=== PATIENT | male | born 1990 | race Two or more races ===

== ENCOUNTER 2018-01-24 08:27 | Emergency (ER) | payer MEDICAID ==
[~2018-01-24] VITALS: Ht 167.6 cm; Wt 66.0 kg
[2018-01-24] MEDS ORDERED: KETOROLAC 60MG/2ML VIAL IM ONE (10:00)
[2018-01-24] MEDS ORDERED: HYDROCODONE/ACETAMINOPHEN 5/325MG TABLET PO ONE (10:00)
[2018-01-24] MEDS ORDERED: BACITRACIN ZINC OINT UDPKT TOP ONE (10:00)
[2018-01-24] MEDS ORDERED: LIDOCAINE HCL/PF 1% 10 MG/ML 5ML VIAL IJ ONE (10:00)
[2018-01-24 10:08] VITALS: BP 145/95
== END 2018-01-24 11:21 | disposition home or self-care (01) ==
LOC: ER 08:27
DX: L02.31 Cutaneous abscess of buttock (principal); F17.200 Nicotine dependence, unspecified, uncomplicated; F12.10 Cannabis abuse, uncomplicated
CPT/HCPCS: 10060; 96372; 99283; J1885; J3490

== ENCOUNTER 2018-07-02 19:42 | Emergency (ER) | payer MEDICAID ==
[~2018-07-02] VITALS: Ht 167.6 cm; Wt 65.9 kg
[2018-07-02] MEDS ORDERED: SODIUM CHLORIDE 0.9% 1,000 ML IV ONE (21:16)
[2018-07-02 21:45] LABS: BASOPHILS % 0.9 % (0.0-2.0); CHLORIDE 106 mEq/L (98-107); EOSINOPHILS % 2.8 % (0.0-5.0); HEMATOCRIT. 41.5 % (42.0-52.0); HEMOGLOBIN. 14.4 g/dL (14.0-18.0); MEAN CORPUSCULAR HEMOGLOBIN 31.8 pg (28.0-32.0); MEAN CORPUSCULAR VOLUME 91.8 fL (80.0-94.0); MEAN PLATELET VOLUME 7.8 fl (7.4-10.4); MONOCYTES % 10.9 % (2.0-8.0); NEUTROPHILS % 57.4 % (40.0-76.0); PLATELET 268 x1000/uL (130-400); RED BLOOD CELL COUNT 4.52 mill/uL (4.7-6.1); RED CELL DISTRIBUTION WIDTH 13.1 % (11.6-14.6)
[2018-07-02 21:46] LABS: PROTHROMBIN TIME 9.9 sec (9.6-11.0)
[2018-07-02 22:11] LABS: CLARITY URINE CLEAR (CLEAR); COLOR URINE YELLOW (YELLOW); KETONES URINE NEGATIVE (NEGATIVE); LEUKOCYTE ESTERASE URINE NEGATIVE (NEGATIVE); NITRITE URINE NEGATIVE (NEGATIVE); OCCULT BLOOD URINE NEGATIVE (NEGATIVE); PH URINE 6.5 (4.5-8.0); PROTEIN URINE NEGATIVE (NEGATIVE); SPECIFIC GRAVITY URINE 1.011 (1.005-1.030); UROBILINOGEN URINE 0.2 E.U./dL (0.2-1.0)
[2018-07-02 22:23] LABS: *BARBITURATES SCREEN URINE NEGATIVE (NEGATIVE)
[2018-07-02 22:24] LABS: *BENZODIAZEPINES SCREEN URINE NEGATIVE (NEGATIVE); *COCAINE SCREEN URINE NEGATIVE (NEGATIVE); CANNABINOID URINE SCREEN PRESUMTIVE POSITIVE (NEGATIVE); METHADONE URINE SCREEN NEGATIVE (NEGATIVE); OPIATES URINE SCREEN NEGATIVE (NEGATIVE); PHENCYCLIDINE URINE SCREEN NEGATIVE (NEGATIVE)
[2018-07-02 22:25] LABS: *AMPHETAMINES SCREEN URINE PRESUMTIVE POSITIVE (NEGATIVE)
[2018-07-02 22:26] LABS: HEPATITIS B SURFACE ANTIGEN NEGATIVE
[2018-07-02 22:42] LABS: HEPATITIS A AB IGM NEGATIVE (NEGATIVE)
[2018-07-02] MEDS ORDERED: EMTRICITABINE 200MG CAPSULE PO ONE (23:15)
[2018-07-02] MEDS ORDERED: RALTEGRAVIR 400MG TABLET PO SCH (23:15)
[2018-07-02] MEDS ORDERED: AZITHROMYCIN 500 MG TABLET PO ONE (23:30)
[2018-07-02] MEDS ORDERED: CEFTRIAXONE SODIUM 250 MG/VIAL IV ONE (23:30)
[2018-07-02] MEDS ORDERED: AZITHROMYCIN 500 MG TABLET PO SCH (23:30)
[2018-07-02 23:40] VITALS: BP 141/89
== END 2018-07-02 23:55 | disposition home or self-care (01) ==
LOC: ER 19:42
DX: A56.8 Sexually transmitted chlamydial infection of other sites (principal); R53.81 Other malaise; F12.10 Cannabis abuse, uncomplicated; F15.10 Other stimulant abuse, uncomplicated; F17.200 Nicotine dependence, unspecified, uncomplicated
CPT/HCPCS: 36415; 80053; 80305; 81003; 85025; 85610; 86592; 96374; 99284; J0696; J7030; Z7610; 86705; 86709; 86803; 87340

== ENCOUNTER 2019-03-03 01:41 | Emergency (ER) | payer MEDICAID ==
[~2019-03-03] VITALS: Ht 167.6 cm; Wt 60.0 kg
[2019-03-03] MEDS ORDERED: IBUPROFEN 600MG TABLET PO ONE (02:30)
[2019-03-03 02:53] LABS: CLARITY URINE CLEAR (CLEAR); COLOR URINE YELLOW (YELLOW); KETONES URINE NEGATIVE (NEGATIVE); LEUKOCYTE ESTERASE URINE NEGATIVE (NEGATIVE); NITRITE URINE NEGATIVE (NEGATIVE); OCCULT BLOOD URINE NEGATIVE (NEGATIVE); PH URINE 6.5 (4.5-8.0); PROTEIN URINE NEGATIVE (NEGATIVE); SPECIFIC GRAVITY URINE 1.012 (1.005-1.030); UROBILINOGEN URINE 0.2 E.U./dL (0.2-1.0)
[2019-03-03] MEDS ORDERED: CEFTRIAXONE SODIUM 250 MG/VIAL IM ONE (06:45)
[2019-03-03] MEDS ORDERED: AZITHROMYCIN 500 MG TABLET PO ONE (06:45)
[2019-03-03 08:00] VITALS: BP 113/75
== END 2019-03-03 09:10 | disposition left against medical advice (07) ==
LOC: ER 01:41
DX: N34.2 Other urethritis (principal); M79.10 Myalgia, unspecified site; F12.10 Cannabis abuse, uncomplicated; F15.10 Other stimulant abuse, uncomplicated; F17.200 Nicotine dependence, unspecified, uncomplicated
CPT/HCPCS: 81003; 96372; 99283; J0696

== ENCOUNTER 2019-05-23 18:17 | Emergency (ER) | payer MEDICAID ==
[~2019-05-23] VITALS: Ht 167.6 cm; Wt 70.0 kg
[2019-05-23 19:32] LABS: HEMATOCRIT 45.2 % (42.0-52.0); HEMOGLOBIN 15.6 g/dL (14.0-18.0); MEAN CORPUSCULAR HEMOGLOBIN 31.5 pg (28.0-32.0); MEAN CORPUSCULAR VOLUME 91.2 fL (80.0-94.0); PLATELET 270 x1000/uL (130-400); RED BLOOD CELL COUNT 4.95 mill/uL (4.7-6.1); RED CELL DISTRIBUTION WIDTH 13.6 % (11.6-14.6)
[2019-05-23 20:24] VITALS: BP 109/60
== END 2019-05-23 20:37 | disposition home or self-care (01) ==
LOC: ER 18:17
DX: K64.4 Residual hemorrhoidal skin tags (principal); F12.10 Cannabis abuse, uncomplicated; F15.10 Other stimulant abuse, uncomplicated
CPT/HCPCS: 36415; 85027; 99283